=== PATIENT | female | born 1945 ===

== ENCOUNTER → 2017-06-22 | Day surgery (SDC) | payer MEDICARE ==
[~2017-06-22] MED LIST: ATROPINE SULFATE 1% OPHT SOLN 2 ML BTL ONE; DEXAMETHASONE SOD PHOS 4 MG/ML VIAL ONE; EPINEPHrine HCL (1:1000) 1 MG/ML VIAL ONE; FLURBIPROFEN 0.03% OPHT SOLN 2.5 ML BTL ONE; HYALURONIDASE/LIDOCAINE/BUPIVACAINE 11 ML SYR TL ONE; LACTATED RINGER'S 1000 ML INJ 1,000 ML ONE; NEOMYCIN/POLYMYXIN/DEXAMETHASONE OPTH OINT 3.5 GM TUBE ONE; PHENYLEPHRINE HCL 2.5 % OPTH SOLN 15 ML BTL ONE; PROPOFOL 200 MG/20 ML AMP IV ONE; SODIUM CHLORIDE 0.9% INJ 10 ML ONE; TETRACAINE 0.5% OPTH SOLN 15 ML BTL ONE; TROPICAMIDE 1% OPHT SOLN 15 ML BTL ONE; ceFAZolin INJ 1,000 MG VIAL ONE
--- NOTE | 2017-06-26 21:30 | MP ---
cc: ROE WALLACE MD DATE OF 1945 DATE OF SURGERY 06/22/2017 PREOPERATIVE DIAGNOSIS Macular hole right eye. POSTOPERATIVE DIAGNOSIS: Macular hole right eye. OPERATION Pars plana vitrectomy, membrane peeling, gas fluid exchange, right eye. ANESTHESIA MAC. SURGEON Roe Wallace MD COMPLICATIONS None. PROCEDURE After informed consent was obtained, the patient was brought to the operating room and placed under brief anesthesia with propofol. 10 cc of a 50/50 mixture of 0.75% Marcaine and 2% lidocaine was placed in a modified Van Lint lid block as well as a retrobulbar injection. The patient was then prepared and draped in the usual sterile fashion. A wire lid speculum was placed in the patient's right eye. A 270 degree conjunctival peritomy was then performed using the 0.12 forceps and Naima scissors. Excellent hemostasis was obtained with the bipolar cautery. Scleral gayle were then made in the lower temporal, supratemporal and supranasal quadrants. A 6-0 Vicryl mattress suture was placed around the lower temporal christy. A 20 gauge MVR blade was then used to penetrate the vitreous cavity through this site. A 4 mm infusion cannula was then temporarily sewn in place and was well-visualized to be in the vitreous cavity through the pupil. The two superior sclerotomy sites were then each made with a 20 gauge MVR blade. Core vitrectomy was then performed. There was no posterior vitreous detachment but one was created using high suction of the vitreous cutter over the disc. The posterior hyaloid membrane was then carefully peeled off the surface of the macula and the vitrectomy was carried out as far as possible into the vitreous space, taking care not to damage the crystalline lens. Careful indirect ophthalmoscopy with scleral depression was then performed. No peripheral retinal breaks were noted. A complete air fluid exchange was then performed. The air was then exchanged for 16% C3F8. The two superior sclerotomy sites were then each closed with interrupted 6-0 Vicryl suture in an "X" fashion. The infusion cannula was removed and mattress sutures tied up permanently. The conjunctiva was re-apposed using two interrupted 7-0 Vicryl sutures. Subconjunctival injections of dexamethasone and Ancef were placed. An Atropine drop, Maxitrol ointment and a patch and shield were then applied. The patient tolerated the procedure well. She will remain face down over the next five days. She will follow up tomorrow in our [place] office. Roe Wallace MD TAB/KK /9:24 AM /9:18 PM
== END | disposition home or self-care (01) ==
LOC: EDBD 11:33 → ESDC 11:33
PROVIDERS: ATTEND Ophthalmology Retina Specialist
DX: H35.341 Macular cyst, hole, or pseudohole, right eye (principal)
CPT/HCPCS: 00145; 67043; J0171; J0690; J1100; J7120